=== PATIENT | male | born 1990 | race Caucasian/White ===

== ENCOUNTER 2021-01-21 20:24 | Emergency (ER) | payer BC ==
[~2021-01-21] VITALS: Ht 182.9 cm; Wt 78.9 kg
[2021-01-21] MEDS ORDERED: ZITHROMAX500 MG PO (23:32)
[2021-01-21] MEDS ORDERED: NASAL MIST126 ML (23:36)
== END 2021-01-21 23:45 | disposition home or self-care (01) ==
LOC: ER 20:24
DX: R50.9 Fever, unspecified (principal); M79.10 Myalgia, unspecified site; R53.81 Other malaise; Z03.818 Encounter for observation for suspected exposure to other biological agents ruled out